=== PATIENT | female | born 1995 | race Hispanic/Latino ===

== ENCOUNTER 2017-06-30 03:20 | Emergency (ER) | payer BC, OTHER ==
[2017-06-30 03:44] VITALS: BP 140/84; PULSE 82; RESP 18; TEMP 97.2; O2SAT 100
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
== END 2017-06-30 05:03 | disposition home or self-care (01) ==
LOC: H.ER 03:20
DX: S01.81XA Laceration without foreign body of other part of head, initial encounter (principal); V19.3XXA Pedal cyclist (driver) (passenger) injured in unspecified nontraffic accident, initial encounter; Y93.55 Activity, bike riding